=== PATIENT | female | born 1980 | race Caucasian/White ===

== ENCOUNTER 2017-03-02 02:16 | Emergency (ER) | payer BC, SELFPAY ==
[2017-03-02 03:23] LABS: #Basophils 0.1 thou/uL (0.0-0.2); #Eosinphils 0.3 thou/uL (0.0-0.7); #Lymphocytes 3.6 thou/uL (1.20-3.40); #Monocytes 0.5 thou/uL (0.11-0.59); #Neutrophils 4.1 thou/uL (1.40-6.50); %Basophils 0.7 % (0.0-1.0); %Eosinophils 3.4 % (0.0-10.0); %Lymphocytes 41.9 % (21.0-51.0); %Monocytes 5.9 % (0.0-10.0); Hematocrit 35.6 % (36.0-47.0); Mean Platelet Volume 7.1 fL (7.4-10.4); Red Blood Cell (RBC) Count 4.36 mill/uL (4.20-5.40); White Blood Cell (WBC) Count 8.5 thou/uL (4.8-10.8)
[2017-03-02 03:52] LABS: ALT (SGPT) 17 U/L (8-55); AST (SGOT) 15 U/L (5-34); Alkaline Phosphatase 82 U/L (40-150); Anion Gap 11 mmol/L (10-20); BUN (Urea Nitrogen) 11 mg/dL (7.0-18.7); Bilirubin, Total 0.3 mg/dL (0.2-1.2); CK (CPK) 77 U/L (29-168); Calc. Creatinine Clearance 0 mL/min (70-130); Calcium 9.2 mg/dL (7.8-10.44); Carbon Dioxide 27 mmol/L (22-29); Chloride 104 mmol/L (98-107); Estimated GFR-MDRD 88; Globulin 3.1 g/dL (2.4-3.5); Lipase 25 U/L (8-78); Protein, Total 6.9 g/dL (6.0-8.3)
[2017-03-02 03:54] LABS: Troponin I Less than 0.010 ng/mL (< 0.028)
--- NOTE | 2017-03-02 08:13 | RAD ---
PORTABLE FRONTAL CHEST RADIOGRAPH: DATE: 03/02/17. COMPARISON: None. HISTORY: Chest pain with pressure. Numbness and tingling in hands. FINDINGS: No pneumothorax, pleural fluid, focal consolidation, or alveolar edema. Heart and mediastinal conto ur is unremarkable. IMPRESSION: No acute findings. POS: [facility]
== END 2017-03-02 04:34 | disposition home or self-care (01) ==
LOC: ERS 02:16
DX: R07.9 Chest pain, unspecified (principal); I10 Essential (primary) hypertension
CPT/HCPCS: 71010; 80053; 82550; 82553; 83690; 84484; 85025; 93005

== ENCOUNTER 2019-09-30 13:00 | Outpatient (CLI) | payer BC | END 2019-09-30 13:01 | disposition home or self-care (01) | LOC: DTY/OP 13:00 | PROVIDERS: ATTEND Surgery | DX: E66.01 Morbid (severe) obesity due to excess calories (principal) | CPT/HCPCS: 97802 ==

== ENCOUNTER 2019-11-21 07:13 | Outpatient (CLI) | payer BC, OTHER ==
--- NOTE | 2019-11-21 17:13 | RAD ---
XR Chest Pa Lat STANDARD History: Preop evaluation Comparison: Radiograph 2017 Findings: Lungs are clear. No pneumothorax or effusion. Cardiac silhouette and mediastinal contours a re within normal limits. No acute osseous abnormality. Impression: No acute intrathoracic abnormality.
[2019-11-21 18:00] LABS: #Basophils 0.1 thou/uL (0.0-0.2); #Eosinphils 0.3 thou/uL (0.0-0.7); #Lymphocytes 3.3 thou/uL (1.20-3.40); #Monocytes 0.5 thou/uL (0.11-0.59); #Neutrophils 4.4 thou/uL (1.40-6.50); %Basophils 0.9 % (0.0-1.0); %Lymphocytes 39.1 % (21.0-51.0); %Monocytes 5.5 % (0.0-10.0); %Neutrophils 51.5 % (42.0-75.0); Hemoglobin 11.2 g/dL (12.0-16.0); Mean Corpuscular HGB CONC 33.8 g/dL (32.0-36.0); Mean Corpuscular Volume 76.8 fL (78.0-98.0); Mean Platelet Volume 8.3 fL (7.4-10.4); Platelet Count 334 thou/uL (130-400); Red Blood Cell (RBC) Count 4.32 mill/uL (4.20-5.40); White Blood Cell (WBC) Count 8.5 thou/uL (4.8-10.8)
[2019-11-21 18:08] LABS: BHCG - Serum Negative (NEGATIVE); Pregs Control Background? CLEAR/WHITE (CLR/WHITE); Pregs Control Bar Appear? YES (CONTROL BAR)
[2019-11-21 18:25] LABS: Hemoglobin A1c 5.3 % (4.0-6.0)
[2019-11-22 12:25] LABS: SARS-CoV-2 MS2 Positive; SARS-CoV-2 N Gene Negative; SARS-CoV-2 S Gene Negative; SARS-CoV-2 orf1ab Negative
--- NOTE | 2019-11-23 18:07 | EKG ---
Test Reason : Blood Pressure : / mmHG Vent. Rate : 074 BPM Atrial Rate : 074 BPM P-R Int : 160 ms QRS Dur : 090 ms QT Int : 396 ms P-R-T Axes : 024 -24 034 degrees QTc Int : 439 ms Normal sinus rhythm Low voltage QRS Borderline ECG When compared with ECG of 02-MAR-2017 02:24, T wave inversion less evident in Anterior leads Confirmed by SAM HERBERT (2) on 11/23/2019 6:06:57 PM Referred By: COLTEN Confirmed By:SAM HERBERT
[2019-11-24 11:10] LABS: ALT (SGPT) 23 U/L (8-55); AST (SGOT) 20 U/L (5-34); Albumin 4.2 g/dL (3.5-5.0); Alkaline Phosphatase 88 U/L (40-110); Anion Gap 16 mmol/L (10-20); BUN (Urea Nitrogen) 11 mg/dL (7.0-18.7); Bilirubin, Total 0.3 mg/dL (0.2-1.2); Calc. Creatinine Clearance 0 mL/min (70-130); Calcium 9.3 mg/dL (7.8-10.44); Carbon Dioxide 22 mmol/L (22-29); Chloride 105 mmol/L (98-107); Estimated GFR-MDRD 81; Globulin 2.9 g/dL (2.4-3.5); Glucose 98 mg/dL (70-105); Potassium 3.6 mmol/L (3.5-5.1); Protein, Total 7.1 g/dL (6.0-8.3); Sodium 139 mmol/L (136-145)
== END 2019-11-21 07:14 | disposition home or self-care (01) ==
LOC: LABBT 07:13
PROVIDERS: ATTEND Surgery
DX: Z01.818 Encounter for other preprocedural examination (principal); Z11.59 Encounter for screening for other viral diseases; E66.01 Morbid (severe) obesity due to excess calories
CPT/HCPCS: 71046; 80053; 83036; 84703; 85025; 87635; 93005; 93010; U0003

== ENCOUNTER 2019-11-21 16:00 | Inpatient (IN) | payer BC ==
[2019-11-24] MEDS ORDERED: Fentanyl 250 MCG/5 ML VIAL ONE (10:50)
[2019-11-24] MEDS ORDERED: SUGAMMADEX SODIUM 200 MG/2 ML VIAL ONE (10:50)
[2019-11-24] MEDS ORDERED: Lidocaine 1% w/Epinephrine 1:100K 20 ML VIAL ONE (11:03)
[2019-11-24] MEDS ORDERED: Bupivacaine 0.25% HCL 30 ML VIAL ONE (11:03)
[2019-11-24] MEDS ORDERED: Heparin 5,000 UNITS/ML VIAL ONE (11:30)
[2019-11-24] MEDS ORDERED: Lidocaine 1% PF 5 ML VIAL ONE (11:44)
[2019-11-24] MEDS ORDERED: Rocuronium Bromide 10 MG/ML (10ML VIAL) ONE (11:44)
[2019-11-24] MEDS ORDERED: Dexamethasone 20 MG/5 ML VIAL ONE (11:44)
[2019-11-24] MEDS ORDERED: EPHEDRINE 25 MG/5 ML SYRINGE ONE (11:44)
[2019-11-24] MEDS ORDERED: PROPOFOL 200 MG/20 ML VIAL ONE (11:44)
[2019-11-24] MEDS ORDERED: Ondansetron PF 4 MG/2 ML Vial ONE (11:44)
[2019-11-24] MEDS ORDERED: Ketorolac Tromethamine 30 MG/ML VIAL ONE (11:44)
[2019-11-24] MEDS ORDERED: Meperidine HCl/PF 25 MG/ML VIAL SLOW IVP PRN (12:10)
[2019-11-24] MEDS ORDERED: Promethazine HCl 25 MG/ML VIAL SLOW IVP PRN (12:10)
[2019-11-24] MEDS ORDERED: Ondansetron HCl/PF 4 MG/2 ML Vial IVP PRN (12:10)
[2019-11-24] MEDS ORDERED: Promethazine HCl 25 MG/ML VIAL IM PRN ×3 (12:10→14:45)
[2019-11-24] MEDS ORDERED: Fentanyl 100 MCG/2 ML VIAL ONE (13:14)
[2019-11-24] MEDS ORDERED: diphenhydrAMINE 50 MG/ML VIAL IVP PRN ×2 (13:33→14:45)
[2019-11-24] MEDS ORDERED: diphenhydrAMINE 25 MG CAP PO PRN (13:33)
[2019-11-24] MEDS ORDERED: Zolpidem Tartrate 5 MG TAB PO PRN (13:33)
[2019-11-24] MEDS ORDERED: Ondansetron PF 4 MG/2 ML Vial IVP PRN ×2 (13:33→14:45)
[2019-11-24] MEDS ORDERED: fentaNYL Citrate/PF 2,000 MCG in Sodium Chloride 0.9% 60 ML IV PRN (13:33)
[2019-11-24] MEDS ORDERED: Naloxone HCl 0.4 mg/ml Vial IV PRN (13:33)
[2019-11-24] MEDS ORDERED: Ketorolac Tromethamine 30 MG/ML VIAL IVP PRN (13:33)
[2019-11-24] MEDS ORDERED: diphenhydrAMINE 50 MG/ML VIAL IM PRN (13:33)
[2019-11-24] MEDS ORDERED: Communication Order-Pharmacy FS SCH (13:45)
[2019-11-24] MEDS ORDERED: D5 1/2 NS w/20 mEq KCL 1,000 ML ONE (14:22)
[2019-11-24] MEDS ORDERED: hydrALAZINE 20 MG/ML VIAL SLOW IVP PRN (14:45)
[2019-11-24] MEDS ORDERED: Dextrose 5% in Water 1,000 ML IV PRN (14:45)
[2019-11-24] MEDS ORDERED: [UNRECOGNIZED DRUG - OTHER] TOP SCH (14:45)
[2019-11-24] MEDS ORDERED: Dextrose 50% Abboject 50 ML SYRINGE SLOW IVP PRN (14:45)
[2019-11-24] MEDS: D5 1/2 NS w/20 mEq KCL 1,000 ML IV SCH (16:38)
[2019-11-24 16:40] VITALS: BMI 39.3
--- NOTE | 2019-11-24 18:20 | OP ---
DATE OF PROCEDURE: 11/24/2019 PREOPERATIVE DIAGNOSES: 1. Morbid obesity with a body mass index of 40. 2. Hypertension. POSTOPERATIVE DIAGNOSES: 1. Morbid obesity with a body mass index of 40. 2. Hypertension. 3. Paraesophageal hiatal hernia. PROCEDURES PERFORMED: 1. Laparoscopic sleeve gastrectomy with GORE staple line reinforcements and 38-Greek bougie. 2. Laparoscopic hiatal hernia repair without fundoplication or mesh. 3. Esophagogastroduodenoscopy. ANESTHESIA: General. ESTIMATED BLOOD LOSS: Minimal. COMPLICATIONS: None. SPECIMENS: Stomach. FINDINGS: Hiatal hernia. DESCRIPTION OF PROCEDURE: The patient was taken to the operating room and laid supine on the operating room table. After general anesthetic was obtained, the arms and legs were double strapped to bariatric table and her abdomen was prepped and draped in a sterile fashion. An OG tube had been used to decompress the stomach. A left subcostal 5-mm Optiview trocar placed in the usual fashion without injury and high-flow pneumoperitoneum was obtained. Left and right abdominal 12-mm ports were placed under direct visualization. A right subcostal 5-mm port was placed as well as a subxiphoid 5 mm port. It was switched out to a Chela retractor, which was used to raise the liver off the GE junction. The short gastrics were then taken down from midbody of the stomach to the left lola of diaphragm. Left lola, posterior fundus, and angle of His were completely dissected. A paraesophageal hiatal hernia was found. A circumferential dissection of the esophagus was then performed by entering the mediastinum. The gastrohepatic ligament was opened medially to expose the right lola of the diaphragm. A circumferential dissection of the esophagus was performed, bringing the fundus of the stomach back into the abdominal cavity under no tension. Short gastrics were taken down to a distance of 6 cm proximal to the pylorus. A 38-bougie was brought in and its tip left in the antrum of the stomach. Multiple loads of [place] stapling device were used to perform the sleeve. The first was fired at the distance of 6 cm proximal to the pylorus, angled up towards the incisura. Care was taken to avoid being to close the incisura. Multiple loads were fired along the bougie and the stomach simply completely transected at the angle of His. The stomach was removed from the left abdominal incisions and its fascial defect was closed using GraNee needle and 0 Vicryl tie. All port sites were infiltrated using local anesthetic. Ethibond suture and the Ti-Knot system were used to put 1 suture in the posterior crura to reapproximate it. Stomach was removed from the left abdominal incision and this fascial defect was closed using GraNee needle and Vicryl tie. The EGD scope was passed into the esophagus and stomach to the level of the duodenum without obstruction. There was no stricture at the incisura. There was no air leak into the staple line. No involvement of the GE junction with the staple line. The EGD scope was used to decompress the stomach. It was pulled and removed. Chela retractor was removed under direct visualization without bleeding. All port sites were infiltrated using local anesthetic and removed under camera visualization without bleeding and pneumoperitoneum was let down. Vicryl was used to close the fascial defect from the left abdominal incision. All incisions were irrigated and closed using 4-0 Monocryl and Dermabond. The patient returned to Recovery in stable condition. All instrument counts, needle counts, and lap counts were correct. Job ID: [id number]
[2019-11-24] MEDS ORDERED: Enoxaparin Sodium 40 MG/0.4 ML SYRINGE SC SCH (21:00)
[2019-11-24] MEDS ORDERED: PARoxetine 20 MG TAB PO SCH (21:00)
[2019-11-25] MEDS: D5 1/2 NS w/20 mEq KCL 1,000 ML IV SCH ×2 (01:03→07:47)
[2019-11-25 05:30] LABS: #Lymphocytes 1.5 thou/uL (1.20-3.40); #Monocytes 0.7 thou/uL (0.11-0.59); %Monocytes 5.4 % (0.0-10.0); %Neutrophils 82.6 % (42.0-75.0); Hemoglobin 10.3 g/dL (12.0-16.0); Mean Corpuscular HGB CONC 32.6 g/dL (32.0-36.0); Mean Corpuscular Hemoglobin 25.1 pg (27.0-31.0); Mean Corpuscular Volume 76.8 fL (78.0-98.0); Mean Platelet Volume 8.1 fL (7.4-10.4); Platelet Count 311 thou/uL (130-400); RBC Distribution Width 12.9 % (11.5-14.5); White Blood Cell (WBC) Count 12.1 thou/uL (4.8-10.8)
[2019-11-25 05:46] LABS: Anion Gap 12 mmol/L (10-20); BUN (Urea Nitrogen) 6 mg/dL (7.0-18.7); Calc. Creatinine Clearance 183 mL/min (70-130); Carbon Dioxide 23 mmol/L (22-29); Chloride 102 mmol/L (98-107); Estimated GFR-MDRD Greater than 90; Glucose 121 mg/dL (70-105); Potassium 3.7 mmol/L (3.5-5.1); Sodium 133 mmol/L (136-145)
--- NOTE | 2019-11-25 07:04 | PDOC.GSPN ---
Surgery Progress Note: Subj - Subjective Narrative: Ms. Dunn is a 39 y/o female status post laparoscopic sleeve gastrectomy and laparoscopic hiatal hernia repair. She had no overnight events and appears to be doing well this morning. She was administered Zofran last night for mild nausea. She reports adequate intake of clear liquids and minimal soreness at the incision sites with mobility. Surgery Progress Note: Obj - Vital signs Vital signs: Vital Signs - Most Recent Temp Pulse Resp BP Pulse Ox 98.1 F 65 16 145/93 H 95 11/25/19 04:00 11/25/19 04:00 11/25/19 04:00 11/25/19 04:00 11/25/19 04:00 - Physical Exam General: no distress ENT: normal mucosa, normal nares Cardiovascular: regular rate and rhythm Respiratory: clear to auscultation, normal respiratory effort Abdomen: soft, nondistended, positive bowel sounds, appropriately tender Integumentary: no abnormal pigmentation Psychiatric: memory intact, speech is normal Wound: dressing clean,dry,intact, healing well. negative: drainage, erythma/ edema Surgery Progress Note: Results - Labs Result Diagrams: 11/25/19 04:58 11/25/19 04:58 Lab results: Laboratory Results - last 24 hr 11/25/19 11/25/19 04:58 04:58 WBC 12.1 H RBC 4.10 L Hgb 10.3 L Hct 31.5 L MCV 76.8 L MCH 25.1 L MCHC 32.6 RDW 12.9 Plt Count 311 MPV 8.1 Neutrophils % 82.6 H Lymphocytes % 12.0 L Monocytes % 5.4 Eosinophils % 0.0 Basophils % 0.0 Neutrophils # 10.0 H Lymphocytes # 1.5 Monocytes # 0.7 H Eosinophils # 0.0 Basophils # 0.0 Sodium 133 L Potassium 3.7 Chloride 102 Carbon Dioxide 23 Anion Gap 12 BUN 6 L Creatinine 0.67 Estimated GFR (MDRD) Greater than 90 Glucose 121 H Calcium 9.0 Surgery Progress Note: A/P - Problem (1) S/P laparoscopic sleeve gastrectomy Current Visit: Yes Code(s): Z98.84 - BARIATRIC SURGERY STATUS Status: Acute (2) S/P laparoscopic hernia repair Current Visit: Yes Code(s): Z98.890 - OTHER SPECIFIED POSTPROCEDURAL STATES; Z87.19 - PERSONAL HISTORY OF OTHER DISEASES OF THE DIGESTIVE SYSTEM Status: Acute (3) Morbid obesity Current Visit: Yes Code(s): E66.01 - MORBID (SEVERE) OBESITY DUE TO EXCESS CALORIES Status: Acute (4) Hypertension Current Visit: Yes Code(s): I10 - ESSENTIAL (PRIMARY) HYPERTENSION Status: Acute - Plan Plan: 1. S/P laparoscopic sleeve gastrectomy with GORE staple line reinforcements and 38-Lithuanian bougie - Continue to maintain clear liquids. Continue pantoprazole 20 mg PO daily for stomach acid control. Continue mobility and exercise as tolerated by the patient. Progress diet as tolerated by the patient. Medications can be taken PO with liquids as tolerated. 2. S/P laparoscopic hiatal hernia repair without fundoplication or mesh - See number 1. 3. Morbid obesity - See number 1. Progress mobility and exercise as tolerated. 4. Hypertension - Continue lisinopril 40 mg PO daily for blood pressure control.
--- NOTE | 2019-11-25 07:24 | DIS ---
DATE OF ADMISSION: 11/24/2019 DATE OF DISCHARGE: 11/25/2019 ADMISSION DIAGNOSES: Morbid obesity, hypertension, hiatal hernia. DISCHARGE DIAGNOSES: Morbid obesity, hypertension, hiatal hernia. PROCEDURES: Laparoscopic sleeve by Dr. Jacobson without complication. CONDITION ON DISCHARGE: Improved. STAFF: Ryan Jacobson MD. HOSPITAL COURSE: On postop day 1, the patient is doing well. She is ambulatory. She has minimal nausea. She is being discharged home. Prescription sent to her pharmacy already. She will follow up with me in 2 weeks. She is going to do liquids for 2 weeks and then pureed diet for 2 weeks. Job ID: [id number]
[2019-11-25] MEDS ORDERED: Lisinopril 20 MG TAB PO SCH (09:00)
[2019-11-25] MEDS ORDERED: Pantoprazole 40 MG VIAL IVP SCH (09:00)
[2019-11-25] MEDS ORDERED: BIRTH CONTROL PILL PO SCH (09:00)
[2019-11-25] MEDS: Hydrocodone-Acetamin 15 ML UDCUP PO PRN ×2 (09:11→13:28)
[2019-11-25 13:31] VITALS: TEMP 98.2
[2019-11-25 13:32] VITALS: BP 133/83
== END 2019-11-25 13:34 | disposition home or self-care (01) | DRG 621 ==
LOC: SURG A 11-24 09:50
PROVIDERS: ADMIT Surgery; ATTEND Surgery
PROC: 0DB64Z3 Excision of Stomach, Percutaneous Endoscopic Approach, Vertical (ICD-10-PCS; principal; 2019-11-24)
PROC: 0BQT4ZZ Repair Diaphragm, Percutaneous Endoscopic Approach (ICD-10-PCS; 2019-11-24)
PROC: 0DJ08ZZ Inspection of Upper Intestinal Tract, Via Natural or Artificial Opening Endoscopic (ICD-10-PCS; 2019-11-24)
DX: E66.01 Morbid (severe) obesity due to excess calories (principal); Z68.41 Body mass index [BMI] 40.0-44.9, adult; I10 Essential (primary) hypertension; K44.9 Diaphragmatic hernia without obstruction or gangrene
CPT/HCPCS: 36415; 80048; 85025; C9113; J0690; J1100; J1200; J1644; J1650; J1885; J2001; J2405; J2704; J3010; J3480; S0020

== ENCOUNTER 2019-12-26 09:19 | Day surgery (SDC) | payer BC ==
[2019-12-26] MEDS ORDERED: Sodium Chloride 0.9% 1,000 ML IV SCH (09:30)
[2019-12-26] MEDS ORDERED: Multivitamins, Adult 10 ML, Thiamine HCl 100 MG in Sodium Chloride 0.9% 1,000 ML IV SCH (09:30)
[2019-12-26 09:33] VITALS: BP 112/73; TEMP 97.9
== END 2019-12-26 12:29 | disposition home or self-care (01) ==
LOC: ONC/OP 09:19
PROVIDERS: ATTEND Surgery
DX: E86.0 Dehydration (principal)
CPT/HCPCS: 96361; 96365; 96366; J3411; J7050